=== PATIENT | male | born 1975 | race Caucasian/White ===

== ENCOUNTER 2025-09-27 08:34 | Outpatient (REF) | payer BC, SELFPAY ==
--- NOTE | 2025-09-27 08:41 | ECG_ITS ---
Test Reason : check qt Blood Pressure : */* mmHG Vent. Rate : 70 BPM Atrial Rate : 70 BPM P-R Int : 138 ms QRS Dur : 76 ms QT Int : 354 ms P-R-T Axes : 61 71 24 degrees QTcB Int : 382 ms Normal sinus rhythm Normal ECG No previous ECGs available Referred By: Becca Garcia Electronically Signed By: DEEPTHI ALLEN
--- OUTSIDE RECORDS SUMMARY | 2025-09-27 08:57 | XMS_ITS | Clinical Summary ---
Author Organization [facility] [address] [facility] Address [address] [place] [phone] Phone Care Team Providers Care Passport Application Examiner Name Role Phone Darrius Healy MD Primary Care Provider [phone] Allergies No known active allergies Medications insulin syringe-needle U-100 0.5 mL 31 gauge x 5/16 syringe 40 Units by Does not apply route 6 times daily. 024 Active flash glucose scanning reader (FreeStyle Maria G 2 [place]) misc 1 each by Not Applicable route. 023 Active insulin lispro 100 unit/mL injection Inject 3-7 Units under the skin 3 (three) times a day before meals. 15 mL 2 025 Active albuterol HFA (Ventolin HFA) 90 mcg/actuation inhaler Inhale 2 puffs by mouth every 4 (four) hours if needed for wheezing or shortness of breath. 8 g 5 025 2025 Active magnesium oxide (MAG-OX) 400 mg magnesium tablet Take 1 tablet (400 mg total) by mouth 1 (one) time each day. 90 tablet 1 025 Active freestyle (FreeStyle Lancets) 28 gauge lancets Use it to check blood sugars 4 times a day. 300 each 3 025 Active pen needle, diabetic (BD Ultra-Fine Short Pen Needle) 31 gauge x 5/16 needle Use it for insulin administration three times daily 300 each 2 025 Active blood-glucose sensor (FreeStyle Maria G 3 Plus Sensor) deviceIndication s:Type 1 diabetes mellitus with other specified complication (CMS/HCC V24, CMS/HCC V28) Box = Kit = EA, change sensor every 2 weeks. 2 kit 11 Active blood-glucose,re ceiver,cont (FreeStyle Maria G 3 [place]) miscIndications: Type 1 diabetes mellitus with other specified complication (CMS/HCC V24, CMS/HCC V28) Check sugars regularly 1 each Active insulin glargine (LANTUS) 100 unit/mL injectionIndicat ions:Type 1 diabetes mellitus with other specified complication (CMS/HCC V24, CMS/HCC V28) Inject 25-30 Units under the skin at bedtime. 30 mL 1 Active acetaminophen (Tylenol 8 Hour) 650 mg 8 hr tablet Take 1 tablet (650 mg total) by mouth every 8 (eight) hours if needed for mild pain. Do not crush, chew, or split. 90 tablet 3 Active gabapentin (NEURONTIN) 300 mg capsuleIndicatio ns:Type 1 diabetes mellitus with hyperglycemia (CMS/HCC V24, CMS/[facility] V28) Take 1 capsule (300 mg total) by mouth 3 (three) times a day. 1 cap at supper time and 2 cap at bedtime 90 capsule 2 Active lovastatin (MEVACOR) 20 mg tablet Take 1 tablet (20 mg total) by mouth at bedtime. at bedtime. 90 tablet 1 Active levothyroxine (SYNTHROID, LEVOTHROID) 137 mcg tablet Take 1 tablet (137 mcg total) by mouth 1 (one) time each day before breakfast. 90 tablet 1 025 2025 Active mupirocin (BACTROBAN) 2 % creamIndications :Boil Apply topically 2 (two) times a day. 30 g 1 025 Active gabapentin (NEURONTIN) 300 mg capsuleIndicatio ns:Type 1 diabetes mellitus with hyperglycemia (CMS/HCC V24, CMS/HCC V28) Take 1 capsule (300 mg total) by mouth 3 (three) times a day. 1 cap at supper time and 2 cap at bedtime 90 capsule 2 025 2024 Discontinued(R eorder) lovastatin (MEVACOR) 20 mg tablet Take 1 tablet (20 mg total) by mouth at bedtime. at bedtime. 90 tablet 1 025 2024 Discontinued(R eorder) venlafaxine XR (EFFEXOR-XR) 37.5 mg 24 hr capsule Take 1 capsule (37.5 mg total) by mouth 1 (one) time each day. Do not crush or chew. 30 each 1 025 2024 Discontinued levothyroxine (SYNTHROID, LEVOTHROID) 137 mcg tablet Take 1 tablet (137 mcg total) by mouth 1 (one) time each day before breakfast. 90 tablet 1 025 2024 Discontinued(R eorder) amoxicillin-clav ulanate (AUGMENTIN) 875-125 mg per tablet Take 1 tablet by mouth 2 (two) times a day for 7 days. 14 each 025 2024 Active Problems Problem Noted Date Diagnosed Date Chronic bronchitis ([facility] V24, [facility] V28) Type 1 diabetes mellitus wit h diabetic polyneuropathy ([facility] V24, [facility] V28) 03/03/2025 Anxiety and depression 03/03/2025 Chronic lymphocytic thyroiditis 09/09/2024 Tobacco use disorder 09/09/2024 Mixed hyperlipidemia 05/31/2023 Hypothyroidism 02/21/2022 Elevated BP without diagnosis of hypertension Pure hypercholesterolemia 04/01/2017 Left foot pain 09/20/2016 Major depressive disorder 02/06/2016 Diabetic peripheral neuropathy ([facility] V24, [facility] V28) 09/23/2015 Encounters Date Type Department Care Team Description 09/20/2025 Telephone Adult Medicine [address] [phone] Darrius Healy MD 09/14/2025 3:45 PM EDT Office Visit Adult Medicine [address] [phone] Darrius Healy MD Anxiety and depression (Primary Dx); Type 1 diabetes mellitus with diabetic polyneuropathy ([facility] V24, [facility] V28); Type 1 diabetes mellitus with hyperglycemia ([facility] V24, [facility] V28); Mixed hyperlipidemia; Acquired hypothyroidism; Chronic bronchitis, unspecified chronic bronchitis type ([facility] V24, [facility] V28); Hypomagnesemia; Boil; Chronic right hip pain; Type 1 diabetes mellitus with other specified complication ([facility] V24, [facility] V28) 07/06/2025 3:00 PM EDT Consult Orthopedic Surgery - [address] [phone] Alfonso Collins, DPM Type 1 diabetes mellitus with diabetic polyneuropathy ([facility] V24, [facility] V28) (Primary Dx); Pain in both feet; Lumbosacral radiculopathy; Hammertoes of both feet; Dermatophytosis, nail from Last 3 Months Immunizations Immunization Administration Dates Next Due Influenza Quadravalent, MDCK , 0.5ml, preservative free (Flucelvax) 6mo and older 11/22/2022,08/14/2018 Influenza trivalent, with pr eservative (Fluzone; Afluria) 6mo and older 09/23/2015,11/10/2013,11/14/2012,10/31,10/04/2008,10/30/2007,08/28/2005 Pneumococcal polysaccharide 23 valent (Pneumovax 23) 2yo and older 01/05/2011 Tdap Tetanus diptheria acell ular pertussis (Boostrix; Adacel) 7yo and older 11/22/2022,10/31/2010 Surgical History Surgery Date Site/Laterality Comments OTHER SURGICAL HISTORY PROCEDURE: DENIES PREVIOUS SURGERY Medical History Medical History Date Comments Type I (juvenile type) diabe yessenia mellitus without mention of complication, not stated as uncontrolled DX:Type I (juvenile type) di abetes mellitus without mention of complication, not stated as uncontrolled Tobacco use disorder DX:Tobacco use disorder Essential hypertension, benign D X:Essential hypertension, benign Chronic lymphocytic thyroiditis DX:Chronic lymphocytic thyroiditis Irritability DX:Irritability DM (diabetes mellitus) ([facility] V24, [facility] V28) DX:DM (diabetes mellitus) (H CC) Major depressive disorder 02/06/2016 DX:Renny or depressive disorder Hyperlipidemia DX:Hyperlipidemi a Family History Medical History Relation Name Comments Thyroid disease Daughter Stroke Father Diabetes Maternal Grandmother Thyroid disease Mother Relation Name Status Comments Daughter Father Alive stroke alzheime rs dementia Maternal Grandmother Mother Alive hypothyroid Social History Tobacco Use Types Packs/Day Years Used Date Smoking Tobacco: Former Cigarettes Smokeless Tobacco: Never Alcohol Use Standard Drinks/Week Comments Yes 0 (1 standard drink = 0.6 oz pur e alcohol) Sex and Gender Information Value Date Recorded Sex Assigned at Not on file Legal Sex Male 8:22 AM EST Gender Identity Not on file Sexual Orientation Not on file Obstetrics History Last Filed Vital Signs Vital Sign Reading Time Taken Comments Blood Pressure 116/61 09/14/2025 3:43 PM EDT Pulse 75 09/14/2025 3:43 PM EDT Temperature 36.9 C (98.4 F) 09/14/2025 3:43 PM EDT Respiratory Rate 14 05/11/2025 3:45 PM EDT Oxygen Saturation 99% 04/15/2025 3:07 PM EDT Inhaled Oxygen Concentration - - Weight 59.9 kg (132 lb) 09/14/2025 3:43 PM EDT Height 162.6 cm (5' 4 ) 09/14/2025 3:43 PM EDT Body Mass Index 22.66 09/14/2025 3:43 PM EDT Plan of Treatment Upcoming Encounters Date Type Department Care Team (Late st Contact Info) Description 10/12/2025 3:00 PM EST Office Visit Orthopedic Surgery [place] [phone] [phone] Alfonso Collins, VIKAS [address] [phone] 10/13/2025 1:30 PM EST Office Visit Orthopedics [address] [phone] Mariano Gutierrez PA [address] [place] [phone] 11/03/2025 3:30 PM EST Medication Management Adult Medicine [address] [phone] Lyla Rosario, PharmD [address] [place] [address] 12/21/2025 3:45 PM EST Office Visit Adult Medicine [address] [phone] Darrius Healy MD [address] [place], [place] Health Maintenance Due Date Last Done Comments Colorectal Cancer Screening: Colonoscopy 1977 Diabetes: Annual Foot Exam 1987 Diabetes: Annual Retina Eye Exam 1987 Hepatitis B Vaccines (1 of 3 - 19+ 3-dose series) 1996 Pneumococcal Vaccine: Pediatrics (0 to 5 Years) and At-Risk Patients (6 to 49 Years) (2 of 2 - PCV) 01/05/2012 01/05/2011 HIV Screening 11/10/2022 Hepatitis C Screening 11/10/2022 Social Influencers of Health Screening 11/10/2022 Depression Screening 12/02/2024 08/18/2024 COVID-19 Vaccine ( season) 2025 05/07/2021, 04/09/2021 Influenza Vaccine (#1) 2025 , 11/22/2022, 08/14/2018, Additional history exists Diabetes: Annual Urine Albumin-Creatinine Ratio (uACR) 08/18/2025 08/18/2024 Diabetes: Blood Sugar Control Test (HGBA1C) 09/03/2025 03/04/2025, 08/18/2024, 08/18/2024 Diabetes: Annual GFR (Glomerular Filtration Rate) 03/04/2026 03/04/2025, 03/04/2025, 08/18/2024 Cholesterol Screening (Lipid Panel) 08/18/2029 08/18/2024, 08/18/2024 DTaP,Tdap,and Td Vaccines (3 - Td or Tdap) 11/22/2032 11/22/2022, 10/31/2010 RSV Immunization Adult Patients (1 - 1-dose 75+ series) 2052 HIB Vaccines Aged Out No longer eligi ble based on patient's age to complete this topic HPV Vaccines Aged Out No longer eligi ble based on patient's age to complete this topic Hepatitis A Vaccines Aged Out No long er eligible based on patient's age to complete this topic IPV Vaccines Aged Out No longer eligi ble based on patient's age to complete this topic MMR Vaccines Aged Out No longer eligi ble based on patient's age to complete this topic Meningococcal ACWY Vaccine Aged Out N o longer eligible based on patient's age to complete this topic Meningococcal B Vaccine Aged Out No l onger eligible based on patient's age to complete this topic RSV Immunization Patients Under 20 months Aged Out No longer eligible based on patient's age to complete this topic Varicella Vaccines Aged Out No longer eligible based on patient's age to complete this topic Procedures Procedure Name Priority Date/Time Associated Diagnosis Comments BASIC METABOLIC PANEL Routine 03/04/2025 1:50 PM EDT Type 1 diabetes mellitus with hyperglycemia ([facility] V24, [facility] V28) Type 1 diabetes mellitus with diabetic polyneuropathy ([facility] V24, [facility] V28) Encounter for diabetic foot exam ([facility] V24, [facility] V28) Mixed hyperlipidemia Acquired hypothyroidism Anxiety and depression HEMOGLOBIN A1C Routine 03/04/2025 1:50 PM EDT Type 1 diabetes mellitus with hyperglycemia ([facility] V24, [facility] V28) Type 1 diabetes mellitus with diabetic polyneuropathy ([facility] V24, [facility] V28) Encounter for diabetic foot exam ([facility] V24, [facility] V28) Mixed hyperlipidemia Acquired hypothyroidism Anxiety and depression DEPRESSION SCREENING Routine 08/18/2024 URINE ALBUMIN CREATININE RATIO Routine 08/18/2024 LIPID PANEL Routine 08/18/2024 from Last 3 Months or Most Recently Relevant to Health Maintenance Results * (ABNORMAL) Hemoglobin A1c (03/04/2025 1:50 PM EDT) Pathologist [facility] Hemoglobin A1C 12.1(H) <6.5 % LAB CHEMISTRY METHOD 03/04/2025 11:06 PM EDT [facility] Mean Bld Glu Estim. 301 mg/dL LAB CHEMISTRY METHOD 03/04/2025 11:06 PM EDT [facility] Blood Venous blood specimen / Unknown Venipuncture / Unknown 03/04/2025 1:50 PM EDT 03/04/2025 2:10 PM EDT us Darrius Healy MD LAB BLOOD ORDERABLES Final Result [facility] [address] [place] [address], [place] [phone] * (ABNORMAL) Basic metabolic panel (03/04/2025 1:50 PM EDT) [facility] Sodium 136 133 - 145 mmol/L LAB CHEMISTRY METHOD 03/04/2025 4:57 PM [facility] Potassium 4.5 3.5 - 5.5 mmol/L LAB CHEMISTRY METHOD 03/04/2025 4:57 PM [facility] Chloride 104 96 - 110 mmol/L LAB CHEMISTRY METHOD 03/04/2025 4:57 PM T [facility] CO2 27 21 - 32 mmol/L LAB CHEMISTRY METHOD 03/04/2025 4:57 PM T [facility] Anion Gap 5 3 - 11 LAB CHEMISTRY METHOD 03/04/2025 4:57 PM [facility] Glucose 426(HH) 70 - 100 mg/dL LAB CHEMISTRY METHOD 03/04/2025 4:57 PM [facility] BUN 14 5 - 25 mg/dL LAB CHEMISTRY METHOD 03/04/2025 4:57 PM EDT [facility] Creatinine 0.84 0.70 - 1.30 mg/dL LAB CHEMISTRY METHOD 03/04/2025 4:57 PM EDT [facility] eGFR 108 >=60 mL/min/1. 73m2 LAB CHEMISTRY METHOD 03/04/2025 4:57 PM EDT [facility] Comment:Calculation based on the Chronic Kidney Disease Epidemiology Collaboration (CKD-EPI) equation refit without adjustment for race. BUN/Creatinine Ratio 16.7 LAB CHEMISTRY METHOD 03/04/2025 4:57 PM EDT [facility] Calcium 9.4 8.5 - 10.5 mg/dL LAB CHEMISTRY METHOD 03/04/2025 4:57 PM EDT [facility] Blood Venous blood specimen / Unknown Venipuncture / Unknown 03/04/2025 1:50 PM EDT 03/04/2025 2:11 PM EDT Darrius Healy MD LAB BLOOD ORDERABLES Final Result [facility] [address] [place] [address], [place] [phone] * Urine Albumin Creatinine Ratio (08/18/2024) [facility] Urine Albumin Creatinine Ratio abstracted Historical Provider HEALTH MAINTENANCE Final Result * Depression Screening (08/18/2024) [facility] Depression Screening abstracted Historical Provider HEALTH MAINTENANCE Final Result * (ABNORMAL) Lipid panel (08/18/2024) [facility] LDL/HDL Ratio 3 0 - 4 Triglycerides 150 0 - 150 mg/dL Cholesterol 293(A) 0 - 200 mg/dL HDL 97 >=40 mg/dL LDL Cholesterol 166(A) 0 - 100 mg/dL Blood Venous blood specimen / Unknown Historical Provider LAB BLOOD ORDERABLES Becky l Result from Last 3 Months or Most Recently Relevant to Health Maintenance Insurance [facility] Care Teams Passport Application Examiner Relationship Specialty Start Date End Date Darrius Healy MD [address] [place] [address] PCP - General Internal Medicine 05/16/22
--- OUTSIDE RECORDS SUMMARY | 2025-09-27 08:57 | XMS_ITS ---
Author Name [facility] Organization Unknown Care Team Organization Name Specialty Phone Email Start Date End Da te [facility] 10/09/2022 07/20/2024
--- OUTSIDE RECORDS SUMMARY | 2025-09-27 08:58 | XMS_ITS | Clinical Summary ---
Author Organization [facility] Address [address] [address] Phone Care Team Providers Care Membership Correspondent Name Role Phone Pcp, Unknown Primary Care Provider Unavailabl e Allergies No known active allergies Medications naproxen (NAPROSYN) 500 MG tablet Take 1 tablet (500 mg total) by mouth 2 (two) times a day as needed. 30 tablet 4 Active cyclobenzaprin e (FLEXERIL) 5 MG tablet 5-10 mg every 6-8 hours as needed for skeletal muscle relaxation/muscle spasm 20 tablet 4 Active LANTUS SOLOSTAR U-100 INSULIN 100 unit/mL (3 mL) InPn injection pen INJECT 30 UNITS SUBCUTANEOUSLY AT BEDTIME 4 Active insulin lispro (ADMELOG, HUMALOG) 100 unit/mL injection pen INJECT 7 UNITS SUBCUTANEOUSLY THREE TIMES DAILY DIRECTED BEFORE MEAL(S) 4 Active gabapentin (NEURONTIN) 300 MG capsule 4 Active gabapentin (NEURONTIN) 100 MG capsule Take 3 capsules (300 mg total) by mouth 3 (three) times a day. 270 capsule 5 Active Encounters Date Type Department Care Team Description 09/01/2025 11:25 AM EDT - 09/01/2025 3:16 PM EDT Emergency [facility] [address] [place] [address] Discharge Disposition: Home or Self Care from Last 3 Months Social History Tobacco Use Types Packs/Day Years Used Date Smoking Tobacco: Never Assessed Education Answer Date Recorded Are you interested in more education? Not on ashley e 05/05/2024 Are you concerned about learning? Not on file 05/05/2024 No 05/05/2024 No 05/05/2024 Food Answer Date Recorded Within the past 6 months we worried whether our food would run out before we got money to buy more. Never True 09/01/2025 Within the past 6 months the food we bought just didn't last and we didn't have enough money to get more. Never True Residential Stability Answer Date Recor ded What is your housing situation today? I have garth morfin 09/01/2025 How many times have you move d in the past 12 months? Zero (I did not move) 09/01/2025 Paying for Meds Answer Date Recorded Do you have trouble paying for medicines? No 09/01/2025 Paying Utility Bills Answer Date Record ed Do you have trouble paying your heating or elect ricity bill? No 09/01/2025 Transportation Answer Date Recorded Has the lack of transportati on kept you from medical appointments or from getting medications? Yes 09/01/2025 Digital Access Answer Date Recorded No 09/01/2025 Yes 09/01/2025 Do you have reliable internet access at home? Ye s 09/01/2025 Do you have a device (e.g., phone, tablet, computer) with a working camera? Yes 09/01/2025 Intimate Partner Violence Answer Date R ecorded Are you denied basic needs s uch as food, clothing, or medical care? No 09/01/2025 In the past 12 months have y ou been in a relationship with a person who hurts, threatens, or tries to control you? No 09/01/2025 Are you denied basic needs s uch as food, clothing, or medical care? No 09/01/2025 In the past 12 months have y ou been in a relationship with a person who hurts, threatens, or tries to control you? No 09/01/2025 Sex and Gender Information Value Date Recorded Sex Assigned at Male 05/05/2024 10:50 AM EDT Legal Sex Male 9:38 AM EDT Gender Identity Male 05/05/2024 10:50 AM EDT Sexual Orientation Don't know 05/05/2024 10 :50 AM EDT Last Filed Vital Signs Vital Sign Reading Time Taken Comments Blood Pressure 133/63 09/01/2025 3:14 PM EDT Pulse 78 09/01/2025 3:14 PM EDT Temperature 36.5 C (97.7 F) 09/01/2025 3:14 PM EDT Respiratory Rate 16 09/01/2025 3:14 PM EDT Oxygen Saturation 98% 09/01/2025 3:14 PM EDT Inhaled Oxygen Concentration - - Weight 67.1 kg (148 lb) 05/05/2024 10:27 AM EDT Height 165.1 cm (5' 5 ) 05/05/2024 10:27 AM EDT Body Mass Index 24.63 05/05/2024 10:27 AM EDT Plan of Treatment Health Maintenance Due Date Last Done Comments Adult Td,Tdap Booster 1977 DEPRESSION SCREENING 1989 SMOKING Hx and SMOKELESS TOB ACCO SCREENING 1990 HEPATITIS C SCREENING 1995 HIV ONE-TIME SCREENING (18-6 5 YEARS) 1995 COLOGUARD 2022 COLONOSCOPY 2022 COLORECTAL CANCER SCREENING 2022 FIT TEST 2022 FOBT 2022 SIGMOIDOSCOPY 2022 VIRTUAL COLONOSCOPY 2022 INFLUENZA VACCINE (#1) 2025 COVID-19 VACCINE (1 - 2024-2 6 season) 2025 LIPID PANEL 08/18/2029 08/18/2024 HEPATITIS A VACCINES Aged Out No long er eligible based on patient's age to complete this topic HIB VACCINES Aged Out No longer eligi ble based on patient's age to complete this topic MENINGOCOCCAL VACCINES (ACWY) Aged Out No longer eligible based on patient's age to complete this topic MENINGOCOCCAL VACCINES (B) Aged Out N o longer eligible based on patient's age to complete this topic PNEUMOCOCCAL VACCINES (0-49 years) Aged Out No longer eligible based on patient's age to complete this topic Medical Devices Not on file Procedures Procedure Name Priority Date/Time Associated Diagnosis Comments ETHANOL, BLOOD STAT 09/01/2025 12:29 PM EDT LFTS (HEPATIC PANEL) STAT 09/01/2025 12:29 PM EDT MAGNESIUM STAT 09/01/2025 12:29 PM EDT BASIC METABOLIC PANEL STAT 09/01/2025 12:29 PM EDT CBC AND DIFFERENTIAL STAT 09/01/2025 12:29 PM EDT POCT GLUCOSE STAT 09/01/2025 10:53 AM EDT POCT GLUCOSE Routine 09/01/2025 10:52 AM EDT from Last 3 Months Results * Ethanol, blood (09/01/2025 12:29 PM EDT) Pathologist [facility] ETHANOL <10 <10 mg/dL [facility] Blood 09/01/2025 12:2 9 PM EDT 09/01/2025 12:37 PM EDT us Maldonado Woods PA-C LAB BLOOD ORDERABLES Final Re sult [facility] [address] [place] [address] * LFTs (hepatic panel) (09/01/2025 12:29 PM EDT) ALKALINE PHOSPHATASE 72 39 - 117 U/L [facility] TOTAL BILIRUBIN 0.5 0.0 - 1.2 mg/dL [facility] DIRECT BILIRUBIN 0.1 0.0 - 0.2 mg/dL [facility] Bilirubin (Indirect) NOT CALCULATED 0 - 1.5 mg/dL [facility] AST 17 0 - 37 U/L [facility] ALT 18 0 - 40 U/L [facility] TOTAL PROTEIN 7.0 6.5 - 8.0 g/dL [facility] ALBUMIN 3.9 3.9 - 4.8 g/dL [facility] GLOBULIN 3.1 1 - 4.8 g/dL [facility] A/G Ratio 1.26 1.00 - 4.80 RATIO [facility] Blood 09/01/2025 12:2 9 PM EDT 09/01/2025 12:37 PM EDT us Maldonado Woods PA-C LAB BLOOD ORDERABLES Final Re sult [facility] [address] [place] [address] * (ABNORMAL) CBC and differential (09/01/2025 12:29 PM EDT) WBC 8.18 4.00 - 11.00 K/uL [facility] RBC 4.23(L) 4.50 - 5.90 M/uL [facility] HGB 13.1(L) 13.5 - 17.5 g/dL [facility] HCT 39.6(L) 41.0 - 53.0 % [facility] PLT 269 150 - 450 K/uL [facility] MCV 93.6 80.0 - 100.0 fL [facility] MCH 31.0 27.0 - 31.0 pg [facility] MCHC 33.1 32.0 - 36.0 g/dL [facility] RDW 11.5 11.5 - 14.5 % [facility] MPV 9.1 8.4 - 12.0 fL [facility] NRBC 0.00 0.00 /100 WBCs [facility] ABSOLUTE NRBC 0.00 0.00 K/uL [facility] DIFF METHOD Auto [facility] NEUTS 64.1 48.0 - 76.0 % [facility] LYMPHS 26.8 18.0 - 41.0 % [facility] MONOS 4.5 4.0 - 11.0 % [facility] EOS 3.9 0.0 - 5.0 % [facility] BASOS 0.5 0.0 - 1.5 % [facility] Granulocytes, immature (%) 0.2 0.0 - 0.9 % [facility] ABSOLUTE NEUTS 5.24 1.92 - 7.60 K/uL [facility] ABSOLUTE LYMPHS 2.19 0.72 - 4.10 K/uL [facility] ABSOLUTE MONOS 0.37 0.16 - 1.10 K/uL [facility] ABSOLUTE EOS 0.32 0.00 - 0.50 K/uL [facility] ABSOLUTE BASOS 0.04 0.00 - 0.15 K/uL [facility] Granulocytes, immature 0.02 0.00 - 0.09 K/uL [facility] Blood 09/01/2025 12:2 9 PM EDT 09/01/2025 12:36 PM EDT Maldonado BUTLER-C LAB BLOOD ORDERABLES Final Re sult Performing Organization Address City/[facility]/ZIP Co de Phone Number [address] [address] * Magnesium (09/01/2025 12:29 PM EDT) MAGNESIUM 1.8 1.6 - 2.6 mg/dL [facility] Blood 09/01/2025 12:2 9 PM EDT 09/01/2025 12:36 PM EDT Maldonado BUTLER-C LAB BLOOD ORDERABLES Final Re sult Performing Organization Address [facility]/ZIP Co de Phone Number [address] [address] * (ABNORMAL) Basic metabolic panel (09/01/2025 12:29 PM EDT) SODIUM 139 133 - 146 mmol/L [facility] CHLORIDE 105 96 - 108 mmol/L [facility] POTASSIUM 4.3 3.3 - 5.1 mmol/L [facility] CO2 26 21 - 35 mmol/L [facility] BUN 10 6 - 19 mg/dL [facility] CREATININE 0.50 0.5 - 1.5 mg/dL [facility] GLUCOSE 262(H) 70 - 99 mg/dL [facility] CALCIUM 9.5 8.4 - 10.3 mg/dL [facility] EGFR >120 >59 mL/min/1.7 3m2 [facility] Comment:Estimated glomerular filtration rate calculated using the CKD-EPI refit equation. ANION GAP 12 10 - 20 mmol/L [facility] Blood 09/01/2025 12:2 9 PM EDT 09/01/2025 12:36 PM EDT us Maldonado Woods PA-C LAB BLOOD ORDERABLES Final Re sult Performing Organization Address City/[facility]/ZIP Co de Phone Number [facility] [address] [place] [address] * (ABNORMAL) POCT Glucose (09/01/2025 10:53 AM EDT) Glucose 281(A) 70 - 100 mg/dL 09/01/2025 10:5 3 AM EDT us Kiran Woods MD POINT OF CARE TEST ORDERABLES Fi nal Result * (ABNORMAL) POCT Glucose (09/01/2025 10:52 AM EDT) Glucose, POCT 281(H) 70 - 100 mg/dL [facility] 09/01/2025 10:5 2 AM EDT 09/01/2025 10:58 AM EDT us Unknown Unknown POINT OF CARE TEST ORDERABLES Final Result Performing Organization Address [facility]/ZIP Co de Phone Number [facility] [address] [place] [address] from Last 3 Months Insurance [facility] Member Subscriber Plan / Payer (Ef fective 2019-Present) Name:GermainJg Relation to Subscriber:Self Name:Jg Germain Payer ID:[id number] (NAIC) Type:HMO Address: [facility] [id number] [place], [place] [facility] WORK[employer] COMPENSATION Care Teams Membership Correspondent Relationship Specialty Start Date End Date Pcp, Unknown PCP - General 09/01/25 Additional Source Comments The information contained in this document represents components of the legal health record. It is not the complete legal health record.[facility]
--- OUTSIDE RECORDS SUMMARY | 2025-09-27 08:58 | XMS_ITS | Encounter Summary ---
Author Organization [facility] Address [address] [place] [address] Care Team Providers Care Machine Molder Squeeze Name Role Phone Darrius Healy MD Primary Care Provider [phone] Encounter Details Date Type Department Care Team ([facility] st Contact Info) Description 09/20/2025 Telephone Adult Medicine [address] [phone] Darrius Healy MD [address] [place] [address] Social History Tobacco Use Types Packs/Day Years Used Date Smoking Tobacco: Former Cigarettes Smokeless Tobacco: Never Alcohol Use Standard Drinks/Week Comments Yes 0 (1 standard drink = 0.6 oz pur e alcohol) Sex and Gender Information Value Date Recorded Sex Assigned at Not on file Legal Sex Male 8:22 AM EST Gender Identity Not on file Sexual Orientation Not on file documented as of this encounter Progress Notes * Darrius Healy MD - 09/20/2025 1:01 PM EDT Okay, noted * Yamila Ramirez MA - 09/20/2025 12:10 PM EDT Archived on September 14 by [id number] [employer] Status * Odalis Han - 09/20/2025 12:03 PM EDT Prior Authorization for Medication-do not complete and send this encounter unless you have the fax from the pharmacy. Is this a Cover My Meds request: Yes -- Fonseca Code [id number] Name of Medication mupirocin (BACTROBAN) 2 % cream Dose of Medication What is the RX # from the faxed refill? How does patient take this med? What Pharmacy did the fax come from: [address] Pharmacy fax #: [phone] [facility] [employer] [facility] Information from fax: What Prescription Plan does the patient have? BIN/PCN if applicable: Cardholder ID: Person Code: Relationship Code: Help desk phone: documented in this encounter Plan of Treatment Upcoming Encounters Date Type Department Care Team (Late st Contact Info) Description 10/12/2025 3:00 PM EST Office Visit Orthopedic Surgery [place] [phone] [phone] Alfonso Collins, DPVicki [address] [address] 10/13/2025 1:30 PM EST Office Visit Orthopedic[address] [phone] Mariano Gutierrez PA [address] [place] [phone] 11/03/2025 3:30 PM EST Medication Management Adult Medicine [address] [phone] Lyla Rosario, JeffryD [address] [place] [address] 12/21/2025 3:45 PM EST Office Visit Adult Medicine [address] [phone] Darrius Healy MD [address], [place] documented as of this encounter Visit Diagnoses Not on filedocumented in this encounter Care Teams Machine Molder Squeeze Relationship Specialty Start Date End Date Darrius Healy MD [address] [place] [address] PCP - General Internal Medicine 05/16/22 documented as of this encounter
[2025-09-27 08:59] LABS: MANUAL DIFF FLAG NO
[2025-09-27 09:26] LABS: Hematocrit 42.5 % (42.0-52.0); Hemoglobin 14.2 g/dl (14.0-18.0); Imm Gran Abs Auto 0.02 X10*3/uL (0.00-0.03); Imm Gran Pct Auto 0.2 % (0.0-0.4); Lymphocytes Absolute Auto 2.4 X10*3/uL (1.2-4.9); Mean Corpuscular HGB Conc 33.4 g/dl (31.0-36.0); Mean Corpuscular Hemoglobin 30.7 pg (27.0-33.0); Mean Corpuscular Volume 92.0 fL (80.0-98.0); NRBC Abs Auto 0.000 X10*3/uL (0.0-0.012); NRBC Pct Auto 0.0 /100WBC (0.0-0.2); Platelet Count 367 X10*3/uL (160-400); Red Blood Count 4.62 X10*6/uL (4.60-5.80); White Blood Count 8.9 X10*3/uL (4.8-10.8)
[2025-09-27 09:58] LABS: Alanine Aminotransferase 17 U/L (0-40); Albumin Level 4.3 g/dL (3.5-5.0); Alkaline Phosphatase 71 U/L (39-117); Anion Gap 11 (12-20); Aspartate Amino Transferase 19 U/L (5-37); Blood Urea Nitrogen 13 mg/dL (9-16); Calcium 9.3 mg/dL (8.4-10.2); Carbon Dioxide 28 mmol/L (22-29); Chloride 103 mmol/L (96-108); Cholesterol 194 mg/dL (<200); Estimated Glomerular Filt Rate > 60; Magnesium 1.6 mg/dL (1.6-2.6); Potassium 4.2 mmol/L (3.3-5.1); Sodium 138 mmol/L (135-145); Total Protein 7.3 g/dL (6.5-8.0)
[2025-09-27 10:05] LABS: Appearance Urine Clear; Glucose Urine UA 100 mg/dL (Negative); PH 7.5 (5.0-9.0); Specific Gravity - Urine 1.020 (1.005-1.025)
[2025-09-27 10:08] LABS: Free T4 (Free Thyroxine) 2.77 ng/dL (0.71-1.85); Thyroid Stimulating Hormone 2.59 uIU/mL (0.32-4.0)
[2025-09-27 10:20] LABS: Folate 10.0 ng/mL (> or = 4.0); Vitamin B12 537 pg/mL (200-900)
== END 2025-09-27 08:35 | disposition home or self-care (01) ==
LOC: HO.LAB 08:34
PROVIDERS: PCP Internal Medicine; Visit Provider Psychiatry & Neurology Psychiatry
DX: Z13.6 Encounter for screening for cardiovascular disorders (principal); F33.2 Major depressive disorder, recurrent severe without psychotic features; E10.9 Type 1 diabetes mellitus without complications; E03.9 Hypothyroidism, unspecified
CPT/HCPCS: 36415; 80053; 81001; 82306; 82465; 82607; 82746; 83036; 83090; 83735; 84425; 84439; 84443; 84480; 84481; 85025; 85652; 86140; 93005

== ENCOUNTER → 2025-09-27 08:41 | Outpatient (BNV) | payer BC, SELFPAY | PROVIDERS: PCP Internal Medicine; Visit Provider Internal Medicine | DX: Z13.6 Encounter for screening for cardiovascular disorders (principal) | CPT/HCPCS: 93010 ==

== ENCOUNTER 2025-10-07 10:30 | Outpatient (RCR) | payer BC, SELFPAY ==
[2025-09-23 13:12] VITALS: BMI 22.0
[2025-09-23 13:13] VITALS: BP 110/60; PULSE 72; TEMP 37.2
--- NOTE | 2025-09-23 14:53 | HO.PHP ---
Clients case was opened and reviewed in teams.
--- NOTE | 2025-09-23 15:44 | PC.ADMIT ---
Patient is a 50 year old male who was referred to [facility] by GEOLOGICAL SAMPLE TESTER crisis secondary to increased depression and anxiety. Patient tearful at times when talking about his history of neglecting his health for many years and fears he will have future complications as a result. Patient reports being dx with Type I diabetes at age 26. Patient reports history of struggling for the past 10-15 years with not taking his diabetic medications or taking his blood sugars. Reports that he was tired of pricking his fingers and the pain associated with this. Patient reports he struggles with diabetic peripheral neuropathy in bilateral feet which he experiences pain. He is prescribed Gabapentin for this however does not feel that it is helping. Patient reports his grandmother struggled with diabetes and had to have both of her legs amputated and he fears this is going to happen to him. In addition patient reports a dx of hypothyroidism. 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 Patient reports he has worked for 24 years at the same company. Patient is alert and oriented x4. He is calm and cooperative. He presented with depressed mood and tearful affect at times. He denied SI, no HI. He was given a copy of his safety plan if needed. Patient reports he is smoking 3 marijuana blunts a day after work at 6pm. He stated he thinks he is smoking too much and stated his thinks so as well. He stated he does nothing after he gets home from work. Stated he does not go out with friends or socialize with others. He was given education about Marijuana use disorder along with potential short and technician terminal and repeater complications. Patient also reports struggles with nausea, sometimes vomiting, abdominal pain, decreased appetite. Patient was given education about Cannabis Induced Hyperemesis Syndrome. Patient is interested in getting help with cutting down his marijuana use. He expressed interest in [facility] groups at [facility]. PHP staff is aware. Patient medications updated with patient and patient's pharmacy. He reports he has been taking his medications recently. Patient also was prescribed Venlafaxine however he stated he never picked this up from the pharmacy (prescribed 08/02/25). Dr. Garcia is aware and is prescribing him Duloxetine. He stated he recently received Maria G 3 sensor to check his blood sugars and plans on putting the sensor on tonight to start using it.
--- NOTE | 2025-09-24 12:53 | HO.PHP ---
PHP staff member placed a referral for OP therapy and med management for Jg and is awaiting a call back.
--- NOTE | 2025-10-01 15:26 | P.HPPSP_ITS ---
HPI Date of Service: 09/23/25 Chief Complaint: depression Sources of Information: patient interviewed, chart reviewed and crisis/core team assessment reviewed HPI Narrative: Patient is a , employed 50-year-old male, father of 2, with history of recurrent depression, anxiety, HLD, thyroid disease, chronic pain numbness and insulin-dependent diabetes mellitus poorly controlled who initially presented to [facility] Emergency room from work for pain and was seen by crisis due to severity of depressive symptoms. He reportedly refused inpatient stating he could not afford to miss 10 days of work and ultimately opted for a referral to [facility]. Patient reportts having severe depression, low energy, low motivation, anhedonia feeling overwhelmed hopeless and demoralized citing concerns with the gradual deterioration of his physical and mental health, as well as frustrations with his lack of advancement at work, watching younger and less experienced coworkers be given opportunities as he repeatedly gets passed over despite many years of hard work and competency, working at the same job for 25 years. He reports dealing with a complicated situation where he had a witnessed fall at work early this year, falling and hitting his head (may have browned out possibly concussed). 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 He voiced particular despair over dealing with being a diabetic since age 26, I am so sick of shooting myself (with insulin), iron, I do not feel good I do not want this disease (diabetes) anymore. There is nothing I can do just keeps getting worse... When I was a teen my grandmother had her feet cut off. She was a diabetic. I do not want to go through none of that. I have worked my ass off for what... Is this all life is? Just misery . Patient endorses passive SI, feeling that life is not worthwhile this is all it is, does not feel particularly hopeful that things could get better but he was willing to come to the program to see but also now just treating to his depression really does not solve his issues with his diabetes or work problems. He cites the only protective factors he has is coming home after work and playing with his 2 and 4-year-old children until their bedtime, the only time I am happy . Otherwise he notes that he and his have not slept in the same bedroom for years. Patient interested in exploring gambling habit. Past Psychiatric History: No prior IPLOC, PHP, respite, detox/rehab admissions SA: denies SIB: denies Aggression or antisocial behaviors: denies Denies legal history Uncompleted secondary education, no hisets, no GED Psychiatrist: none Therapist: none PCP: Darrius Healy MD Previous trials: perhaps tried Wellbutrin 15 or 20 years ago (was not compliant with treatment for any considerable period of time) CURRENT MEDICATIONS: gabapentin 300 mg TID Lispro 100 units/mL (3mL) 7 units subcut TID Lantus U-100 insulin 30 units subcut QHS cyclobenzaprine 5-10 mg q 6-8 hrs prn Naproxen 500 mg BID prn PMFSH Medical History (Updated 10/04/25 @ 08:10 by Becca Garcia MD) Lactose intolerance Peripheral neuropathy Hypothyroidism HTN (hypertension) High cholesterol Type I diabetes mellitus Narrative: IDDM/type 1 since age 26, poorly controlled peripheral neuropathy Chronic pain Hypothyroidism Asthma unspecified GI problems Hip pain R, weakness w recent falls Surgeries: denies Seizures: denies 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 s/p fall Ht: 5'5 Wt: 128 lbs ALL: NKDA Family History: autoimmune diseases Social History: , 2 children Lives at home with and their 4 and 2 yo children Works at [employer], [employer] x >25 yrs Substance History: Cannabis use - daily, smokes blunts at night Nicotine - quit smoking 2 yrs ago No other alcohol or drug use Trauma History: denies Diagnostics Vital Signs (24Hr): BMI result Body Mass Index 22.0 Meds/Allergies Meds Home Medications ?Medication ?Instructions ?Recorded ?Confirmed ?Type albuterol sulfate 90 mcg/actuation 2 puff inhalation Q 4H PRN wheezing 09/23/25 09/23/25 History aerosol inhaler gabapentin 300 mg capsule See Rx Instructions .Route . COMPLEX 09/23/25 09/23/25 History insulin glargine 100 unit/mL (3 See Rx Instructions .R oute .COMPLEX 09/23/25 09/23/25 History mL) subcutaneous pen (Lantus Solostar U-100 Insulin) insulin lispro 100 unit/mL 3 - 7 unit subcut TID 09/2309/23/25 History subcutaneous pen levothyroxine 137 mcg tablet 137 mcg PO QAM 09/23/25 1 History lovastatin 20 mg tablet 20 mg PO BEDTIME 09/23/25 History Allergies Allergies Allergy/AdvReac Type Severity Reaction Status Date / Time No Known Allergies Allergy Verified 09/23/25 13:12 Mental Status Exam Mental Status Exam Patient Appearance: Unkempt (short stature, thin, casually dressed) Patient Orientation: Person, Place, Time and Situation Level of Consciousness: Awake and Alert Patient Behavior: Avoidant, Crying and Poor Eye Contact Mood Description: Sad Affect Description: Depressed (tearful), Sad and Apprehensive Patient Cognition Impaired: No Ability to Follow Directions: Good Speech Pattern: Clear, Appropriate and Coherent Hallucinations: None Delusions: Not Present Thought Process: Intact and Rumination Thought Content: positive for Circumstantial, positive for Preoccupation and positive for Suicidal Ideation (passive SI without intention, urge or plan to harm self) Judgement: Fair Assessment & Plan Assessment & Plan (1) MDD (major depressive disorder), recurrent severe, without psychosis: Status: Acute Code(s): F33.2 - Major depressive disorder, recurrent severe without psychotic features (2) LALA (generalized anxiety disorder): Status: Acute Code(s): F41.1 - Generalized anxiety disorder Plan Admit to [facility] VS reviewed on admission: afebrile, BP 110/60;?72 bpm start duloxetine 20 mg qd-bid start mirtazapine 7.5 mg qhs prn sleep continue gabapentin 1200 mg qhs (will consider expanding dose to BID or TID to target anxiety, pain/neuropathy) may consider continue other regular medications for now Routine lab work will also check A1c, renal fxn, TFTs, nutritional panel EKG, routine for baseline QTc for medication considerations as indicated UDS as indicated MassPat reviewed Continue to monitor as per protocol Patient educated on: diagnosis, medication risk/benefits, substance abuse and medical condition Informed Consent: understands Reason for continued partial hosp. stay Substantial Risk for: inability to function and med/psych decompensation Certification I certify that partial hospital treatment is medically necessary due to the symptoms and problems resulting from the patient's mental illness and the failure to treat the patient at the partial hospital level of care would likely result in the patient requiring inpatient psychiatric care which could not be prevented at a less intensive level of care. Time Spent With Patient Time: Total time managing care of this patient today __60__ minutes.
--- NOTE | 2025-10-04 15:23 | HO.PHP ---
ar. Gregorio has a med provider appointment with Woody Hendrix on October 22 at [address] [place] [address] [place] [address]. Jg has an OP therapy appointment scheduled for October 08, 2025 at 9 AM in person with Lissette at [address] [place] [address] [place] [address].
--- NOTE | 2025-10-07 10:32 | P.PNPSP_ITS ---
Subjective Subjective Date of Service: 10/07/25 Reason For Visit: depression Healthcare Proxy: No Guardianship: No Medical Problems Affecting Mental Status: Yes Interim History: Jg is seen today for evaluation prior to discharge today. He had a good engagement at [facility] with benefits. In today's visit he talked about ongoing issues with his [place] and may leave with his employed air and also is not sure he is going to return to them as planned for 10/30. Current medications were individually reviewed and a 1 month supply was sent. He does have appointments for therapy and psychiatry. His recent lab work was reviewed and his blood sugar is 202 and hemoglobin A1c is over 11 which he is aware of. He has been using his Dexcom glucose monitoring. Per admission:Patient is a , employed 50-year-old male, father of 2, with history of recurrent depression, anxiety, HLD, thyroid disease, chronic pain numbness and insulin-dependent diabetes mellitus poorly controlled who initially presented to [facility] Emergency room from work for pain and was seen by crisis due to severity of depressive symptoms. He reportedly refused inpatient stating he could not afford to miss 10 days of work and ultimately opted for a referral to [facility]. Patient reportts having severe depression, low energy, low motivation, anhedonia feeling overwhelmed hopeless and demoralized citing concerns with the gradual deterioration of his physical and mental health, as well as frustrations with his lack of advancement at work, watching younger and less experienced coworkers be given opportunities as he repeatedly gets passed over despite many years of hard work and competency, working at the same job for 25 years. He reports dealing with a complicated situation where he had a witnessed fall at work early this year, falling and hitting his head (may have browned out possibly concussed). Reportedly there have been ongoing discussions with his supervisor testing about these issues and trying to apply for workman's comp, however in recent weeks his supervisor testing has been refuting this history, stating that this fall did not occur, which has caused the patient considerable consternation. He voiced particular despair over dealing with being a diabetic since age 26, I am so sick of shooting myself (with insulin), iron, I do not feel good I do not want this disease (diabetes) anymore. There is nothing I can do just keeps g etting worse... When I was a teen my grandmother had her feet cut off. She was a diabetic. I do not want to go through none of that. I have worked my ass off for what... Is this all life is? Just misery . Patient endorses passive SI, feeling that life is not worthwhile this is all it is, does not feel particularly hopeful that things could get better but he was willing to come to the program to see but also now just treating to his depression really does not solve his issues with his diabetes or work problems. He cites the only protective factors he has is coming home after work and playing with his 2 and 4-year-old children until their bedtime, the only time I am happy . Otherwise he notes that he and his have not slept in the same bedroom for years. Patient interested in exploring gambling habit. Review of Systems Review of Systems Yes all other systems are reviewed and are negative Mental Status Exam Mental Status Exam Narrative: In today's visit he is alert, oriented and pleasant. Normal speech. Good eye contact. Affect is appropriate and he is somewhat anxious. No acute signs of psychosis. No delusions. No AVH. No suicidal ideations upon inquiry. Cognitively he is intact. Judgment is intact. He moves all limbs. No gait abnormalities. Diagnostics Vital Signs (24Hr): BMI result Body Mass Index 22.0 Assessment & Plan Assessment & Plan (1) MDD (major depressive disorder), recurrent severe, without psychosis: Status: Acute Code(s): F33.2 - Major depressive disorder, recurrent severe without psychotic features (2) LALA (generalized anxiety disorder): Status: Acute Code(s): F41.1 - Generalized anxiety disorder Plan Patient will be discharged from [facility] as planned today. A 1 month supply of gabapentin, duloxetine and Remeron were sent in to [facility] in [place] Certification I certify that partial hospital treatment is medically necessary due to the symptoms and problems resulting from the patient's mental illness and the failure to treat the patient at the partial hospital level of care would likely result in the patient requiring inpatient psychiatric care which could not be prevented at a less intensive level of care. Total time managing care of this patient today ____ minutes. Discharge Plan Discharge Attending provider: Becca Garcia Additional Instructions: Jg has a med provider appointment with Woody Hendrix on October 22 at 9 AM [address], [place] [address]. Jg has an OP therapy appointment scheduled for October 08, 2025 at 9 AM in person with Lissette at [address], [place] [address]. Medications: Continued levothyroxine 137 mcg tablet 137 mcg PO QAM lovastatin 20 mg tablet 20 mg PO BEDTIME albuterol sulfate 90 mcg/actuation HFA aerosol inhaler 2 puff INHALATION Q4H PRN (Reason: wheezing) Rx Instructions: INHALE 2 PUFFS BY MOUTH EVERY 4 HOURS NEEDED FOR WHEEZING OR FOR SHORTNESS OF BREATH insulin lispro 100 unit/mL insulin pen 3 - 7 unit subcut TID Rx Instructions: INJECT 3 TO 7 UNITS SUBCUTANEOUSLY THREE TIMES DAILY BEFORE MEAL(S) insulin glargine [Lantus Solostar U-100 Insulin] 100 unit/mL (3 mL) insulin pen See Rx Instructions .ROUTE .COMPLEX Rx Instructions: Take 25-30 units at Bedtime. gabapentin 300 mg capsule See Rx Instructions .ROUTE .COMPLEX Qty: 150 0RF Rx Instructions: TAKE 1 CAPSULE BY MOUTH THREE TIMES DAILY. TAKE 1 CAPSULE AT DINNER TIME AND 2 CAPSULES AT BEDTIME duloxetine 20 mg capsule,delayed release(DR/EC) 20 mg PO BID Qty: 30 0RF Changed mirtazapine 15 mg tablet 15 mg PO BEDTIME 30 Days Qty: 30 0RF Rx Instructions: 15 mg orally; Stand Alone Forms: Patient Portal Discharge page Print Language: Sri [place]an
== END 2025-10-07 23:59 | disposition home or self-care (01) ==
LOC: HO.PHPA 10:30
PROVIDERS: Visit Provider Psychiatry & Neurology Psychiatry
DX: F33.2 Major depressive disorder, recurrent severe without psychotic features (principal); F41.1 Generalized anxiety disorder; Z79.899 Other long term (current) drug therapy
CPT/HCPCS: 90791; 90853